=== PATIENT | female | born 1935 | race Caucasian/White ===

== ENCOUNTER 2016-10-29 16:37 | Emergency (ER) | payer MEDICARE ==
[~2016-10-29] VITALS: Ht 154.9 cm; Wt 48.1 kg
--- NOTE | 2016-10-29 17:20 | NUR ---
DR TORIBIO AT THE BEDSIDE FOR EVAL AND EXAM.
--- NOTE | 2016-10-29 18:14 | NUR ---
Patient discharged in stable conditon. Written and verbal after care instructions given. Patient and pt's care worker verbalize understanding of instructions.
[2016-10-29 18:16] VITALS: BP 143/80
== END 2016-10-29 18:17 | disposition home or self-care (01) ==
LOC: ER 16:48
DX: M25.512 Pain in left shoulder (principal); I10 Essential (primary) hypertension
CPT/HCPCS: 73000; 99284; A4663